=== PATIENT | female | born 1950 | race Caucasian/White ===

== ENCOUNTER 2018-04-05 09:40 | Outpatient (CLI) | payer MEDICARE ==
--- NOTE | 2018-04-06 15:15 | MMO ---
BILATERAL SCREENING MAMMOGRAM: Date: 04/05/18 HISTORY: Screening. COMPARISON: Mammogram from 2017. TECHNIQUE: Bilateral screening CC and MLO mammograms. This patient's mammogram was interpreted with the assistance of computer-aided detection. FINDINGS: No suspicious mass, architectural distortion, or microcalcifications. Scattered fibroglandular densit ies. IMPRESSION: BIRADS 2: Benign Finding(s) Continued annual mammographic screening is recommended. POS: DEBBIE
== END 2018-04-05 09:41 | disposition home or self-care (01) ==
LOC: SCSMAMMO 09:40
PROVIDERS: ATTEND Family Medicine
DX: Z12.31 Encounter for screening mammogram for malignant neoplasm of breast (principal)
CPT/HCPCS: 77067

== ENCOUNTER 2018-05-12 09:49 | Outpatient (CLI) | payer MEDICARE ==
--- NOTE | 2018-05-12 12:32 | CT ---
CT OF THORAX WITHOUT CONTRAST UTILIZING LOW DOSE CT LUNG CANCER SCREENING PROTOCOL: Indication: 67-year-old female with history of 46 years of smoking. Quite 15 years ago. Patient previ ously smoked 1 to 1.5 packs per day. No history of cancer. FINDINGS: There is mild centrilobular emphysema. No suspicious pulmonary nodule is identified. No focal airspac e opacity is noted. There are mild vascular calcifications involving the thoracic aorta. There is mod erate calcification involving the coronary arteries. Visualized upper abdomen reveals no definite acu te abnormality. Gallbladder is surgically absent. No definite acute osseous abnormality is evident. IMPRESSION: 1. Lung rads category 1 - negative. Recommend annual low dose lung cancer screening CT. 2. Mild centrilobular emphysema. Moderate coronary artery and mild thoracic aortic calcifications. Ch olecystectomy. POS: DEBBIE
== END 2018-05-12 09:50 | disposition home or self-care (01) ==
LOC: CT 09:49
PROVIDERS: ATTEND Family Medicine
DX: Z87.891 Personal history of nicotine dependence (principal); J43.2 Centrilobular emphysema; I25.10 Atherosclerotic heart disease of native coronary artery without angina pectoris; I70.0 Atherosclerosis of aorta; Z90.49 Acquired absence of other specified parts of digestive tract
CPT/HCPCS: G0297

== ENCOUNTER 2018-09-15 11:42 | Day surgery (SDC) | payer MEDICARE ==
[2018-09-14 14:57] VITALS: BMI 41.4
[2018-09-15] MEDS ORDERED: Lidocaine 1% PF 5 ML VIAL ONE (13:01)
[2018-09-15] MEDS ORDERED: Sodium Bicarbonate 2.5 MEQ/5 ML VIAL ONE (13:01)
[2018-09-15 14:00] VITALS: BP 157/70; TEMP 98.3
--- NOTE | 2018-09-15 14:46 | ULT ---
THRYOID SONOGRAM: History: Thyroid mass. Abnormal carotid sonogram. FINDINGS: Right thyroid measures up to 2.7 cm. Along the medial margin near the isthmus is an oval heterogeneou s 0.6 mm hypoechoic nodule. Isthmus is 0.2 cm. The left thyroid lobe measures up to 3.6 cm and is pre dominately occupied by well circumscribed very heterogeneous oval slightly hypoechoic mass measuring up to 3.1 x 1.7 x 1.7 mm. Internal nonvascular martin is present. Some vascularity is scattered about t he dominant mass. A tiny cluster of microcalcifications is present near the superior pole. IMPRESSION: Dominant left thyroid lobe mass as detailed above. Sonographic fine needle aspiration has been perfor med. Please see separate report. POS: DEBBIE
--- NOTE | 2018-09-15 15:57 | ULT ---
SONOGRAPHIC GUIDED FNA LEFT THYROID LOBE MASS: HISTORY: Dominant mass left thyroid lobe. FINDINGS: After explaining the procedure and answering all questions, a dominant mass in the left thyroid lobe was visualized. Sterile technique, buffered local anesthesia, sonographic guidance, and a medial yan bill were used to carefully advance a 25-gauge needle into the large left thyroid lobe mass. A tota l f 4 passes were made. Care was taken to obtain a sample in the region of the microcalcification cl uster. Tissue was submitted to pathology for evaluation. Postprocedure imaging shows no evidence of complic ation. The patient tolerated the procedure well and was dismissed in good condition. IMPRESSION: Technically successful sonographic-guided fine needle aspiration left thyroid lobe mass. Pathology i s pending. POS: DEBBIE
== END 2018-09-15 13:45 | disposition home or self-care (01) ==
LOC: ULT 11:42
PROVIDERS: ATTEND Otolaryngology Plastic Surgery within the Head & Neck
PROC: 0GBG3ZX Excision of Left Thyroid Gland Lobe, Percutaneous Approach, Diagnostic (ICD-10-PCS; principal; 2018-09-15)
DX: E04.1 Nontoxic single thyroid nodule (principal); I11.0 Hypertensive heart disease with heart failure; I50.9 Heart failure, unspecified; E03.9 Hypothyroidism, unspecified; M19.90 Unspecified osteoarthritis, unspecified site; E55.9 Vitamin D deficiency, unspecified; F32.9 Major depressive disorder, single episode, unspecified; G47.00 Insomnia, unspecified; Z87.891 Personal history of nicotine dependence; Z79.82 Long term (current) use of aspirin; Z79.84 Long term (current) use of oral hypoglycemic drugs; Z79.899 Other long term (current) drug therapy
CPT/HCPCS: 60100; 76536; 76942; 88173; J2001

== ENCOUNTER 2018-10-05 08:14 | Day surgery (SDC) | payer MEDICARE ==
[2018-10-04 11:05] VITALS: BMI 41.4
[2018-10-05 10:23] LABS: Hemoglobin 13.9 g/dL (12.0-16.0)
[2018-10-05 10:41] LABS: Anion Gap 12 mmol/L (10-20); BUN (Urea Nitrogen) 19 mg/dL (9.8-20.1); Calc. Creatinine Clearance 117 mL/min (70-130); Calcium 9.3 mg/dL (7.8-10.44); Carbon Dioxide 25 mmol/L (23-31); Chloride 106 mmol/L (98-107); Estimated GFR-MDRD 74; Glucose 117 mg/dL (80-115); Potassium 4.2 mmol/L (3.5-5.1); Sodium 139 mmol/L (136-145)
[2018-10-05] MEDS ORDERED: Lidocaine 1% w/Epinephrine 1:100K 20 ML VIAL ONE (11:36)
[2018-10-05] MEDS ORDERED: Fentanyl 100 MCG/2 ML VIAL ONE ×3 (11:46→13:34)
[2018-10-05] MEDS ORDERED: Bacitracin Zinc Ointment 30 gm TUBE ONE (12:53)
[2018-10-05] MEDS ORDERED: PROPOFOL 200 MG/20 ML VIAL ONE (12:57)
[2018-10-05] MEDS ORDERED: Lidocaine 1% PF 5 ML VIAL ONE ×2 (12:57)
[2018-10-05] MEDS ORDERED: Rocuronium Bromide 10 MG/ML (10ML VIAL) ONE (12:57)
[2018-10-05] MEDS ORDERED: PHENYLEPHRINE-NS 100 MCG/ML 10 ML SYRINGE ONE (12:57)
[2018-10-05] MEDS ORDERED: Ondansetron PF 4 MG/2 ML Vial ONE (12:57)
[2018-10-05] MEDS ORDERED: Hydrocodone-Acetamin 15 ML UDCUP ONE (15:43)
[2018-10-05] MEDS ORDERED: Promethazine HCl 25 MG/ML VIAL ONE (17:47)
--- NOTE | 2018-10-06 14:37 | OP ---
DATE OF PROCEDURE: 10/05/2018 PREOPERATIVE DIAGNOSIS: Left thyroid mass. POSTOPERATIVE DIAGNOSIS: Left thyroid mass. PROCEDURE PERFORMED: Left hemithyroidectomy with intraoperative laryngeal nerve monitor. ESTIMATED BLOOD LOSS: 10 mL. COMPLICATIONS: None. ANESTHESIA: GETA. DESCRIPTION OF PROCEDURE: The patient was taken to the operating room and placed on table. General endotracheal anesthesia was obtained by the Anesthesia staff. Tube was secured in the midline of upper lip. Shoulder roll was placed. The patient was prepped for standard surgical procedure. Following this, an intraoperative laryngeal nerve monitor was turned on and remained on throughout the procedure. Following this, an incision was made approximately 2 cm above the sternal notch in a natural skin crease. Incision was carried through skin, subcutaneous tissue, and the platysmal layer. Following this, subsequent platysmal flaps were elevated superiorly to the level of thyroid notch and inferiorly to the sternal notch. Following this, the strap muscles were identified and were in the midline. The thyroid gland was easily identified and a large left thyroid lobe was identified extending medially adjacent to the capsule of this left thyroid lobe. Dissection was carried medially. The middle thyroid vein was suture ligated. The gland was then displaced inferiorly and the superior thyroid vascular pedicle was then identified, isolated, and suture ligated immediately adjacent to the thyroid lobe. The superior parathyroid gland was identified and was preserved. Following this, the recurrent laryngeal nerve was identified and was dissected towards the cricothyroid notch, freeing the thyroid gland from this area. The thyroid artery was suture ligated. Following this, Warren ligaments were identified and were transected with the suture ligation or the bipolar device. The gland was then freed from its attachments to the trachea and the left thyroid lobe along with the isthmus of the thyroid was then suture ligated and removed from the body. They were sent for pathological analysis and they deferred to rule out follicular thyroid cancer. The wound was irrigated and a small drain was placed. The strap muscle layer, platysma layer, and subcutaneous layers were closed using Monocryl stitches. The skin was closed using Dermabond. The patient tolerated the procedure well. The laryngeal nerve was turned off at this point of procedure, and the patient was awakened from anesthesia. Job ID: [id number]
== END 2018-10-05 16:10 | disposition home or self-care (01) ==
LOC: SDC 08:14
PROVIDERS: ATTEND Otolaryngology Plastic Surgery within the Head & Neck
PROC: 0GTJ0ZZ Resection of Thyroid Gland Isthmus, Open Approach (ICD-10-PCS; principal; 2018-10-05)
PROC: 0GTG0ZZ Resection of Left Thyroid Gland Lobe, Open Approach (ICD-10-PCS; 2018-10-05)
DX: E04.1 Nontoxic single thyroid nodule (principal); E03.9 Hypothyroidism, unspecified; I11.0 Hypertensive heart disease with heart failure; I50.9 Heart failure, unspecified; M19.90 Unspecified osteoarthritis, unspecified site; G47.00 Insomnia, unspecified; E55.9 Vitamin D deficiency, unspecified; F32.9 Major depressive disorder, single episode, unspecified; Z87.891 Personal history of nicotine dependence; Z79.82 Long term (current) use of aspirin; Z79.84 Long term (current) use of oral hypoglycemic drugs; Z79.899 Other long term (current) drug therapy
CPT/HCPCS: 36415; 80048; 85014; 85018; 88307; 93005; 93010; J2001; J2405; J2550; J2704; J3010

== ENCOUNTER 2022-02-25 14:16 | Outpatient (CLI) | payer MEDICARE | END 2022-02-25 14:17 | disposition home or self-care (01) | LOC: BICMAMMO 14:16 | PROVIDERS: ATTEND Family Medicine | DX: Z12.31 Encounter for screening mammogram for malignant neoplasm of breast (principal); Z80.3 Family history of malignant neoplasm of breast | CPT/HCPCS: 77063; 77067 ==

== ENCOUNTER 2023-02-23 11:23 | Outpatient (CLI) | payer MEDICARE | END 2023-02-23 11:24 | disposition home or self-care (01) | LOC: SCSMRI 11:23 | PROVIDERS: ATTEND Orthopaedic Surgery | DX: M19.011 Primary osteoarthritis, right shoulder (principal); M25.411 Effusion, right shoulder; M75.111 Incomplete rotator cuff tear or rupture of right shoulder, not specified as traumatic; S46.911A Strain of unspecified muscle, fascia and tendon at shoulder and upper arm level, right arm, initial encounter; M65.811 Other synovitis and tenosynovitis, right shoulder ==

== ENCOUNTER 2023-04-08 05:40 | Observation (INO) | payer MEDICARE ==
[2023-04-05 12:20] VITALS: BMI 45.7
[2023-04-08] MEDS ORDERED: Tranexamic Acid 1,000 MG/10 ML VIAL ONE (06:31)
[2023-04-08] MEDS ORDERED: CEFAZOLIN 2 GM VIAL ONE (06:31)
[2023-04-08] MEDS ORDERED: Sodium Chloride 0.9% 200 ML ONE (06:31)
[2023-04-08] MEDS ORDERED: Vancomycin (BATCH) 1.5 GRAM/300 ML BAG ONE (06:31)
[2023-04-08] MEDS ORDERED: Midazolam HCl 2 mg/2 ml Vial ONE (06:45)
[2023-04-08] MEDS ORDERED: fentaNYL 50 mcg/mL 1 mL Vial ONE (06:45)
[2023-04-08] MEDS ORDERED: Lidocaine 1% (PF) 30 ML VIAL ONE (06:45)
[2023-04-08] MEDS ORDERED: Acetaminophen 500 MG TAB ONE (06:49)
[2023-04-08] MEDS ORDERED: Phenylephrine 10 MG/ML VIAL ONE (06:57)
[2023-04-08] MEDS ORDERED: fentaNYL PF 100 MCG/2 ML SYRINGE ONE (06:57)
[2023-04-08] MEDS ORDERED: Dexamethasone 20 MG/5 ML VIAL ONE (07:01)
[2023-04-08] MEDS ORDERED: Ketorolac Tromethamine 30 MG/ML VIAL ONE (07:01)
[2023-04-08] MEDS ORDERED: Lidocaine 1% PF 5 ML VIAL ONE (07:01)
[2023-04-08] MEDS ORDERED: ePHEDrine Sulfate 50 MG/10 ML VIAL ONE (07:01)
[2023-04-08] MEDS ORDERED: Glycopyrrolate 0.2 MG/ML 5 ML SYRINGE ONE (07:01)
[2023-04-08] MEDS ORDERED: Ondansetron PF 4 MG/2 ML Vial ONE (07:01)
[2023-04-08] MEDS ORDERED: PROPOFOL 200 MG/20 ML VIAL ONE (07:01)
[2023-04-08] MEDS ORDERED: NEOSTIGMINE 3 MG/3 ML SYR 3 MG/3 ML SYRINGE ONE (07:01)
[2023-04-08] MEDS ORDERED: Rocuronium Bromide 10 MG/ML (10ML VIAL) ONE (07:01)
[2023-04-08] MEDS ORDERED: fentaNYL 50 mcg/mL 1 mL Vial SLOW IVP PRN (08:34)
[2023-04-08] MEDS ORDERED: Ropivacaine 0.2% 550 ML 550 ML NERVE BLCK SCH (08:45)
[2023-04-08] MEDS ORDERED: HYDROcodone/Acetaminophen 10/325 mg Tablet PO PRN ×2 (08:45)
[2023-04-08] MEDS ORDERED: traMADol HCl 50 MG TAB PO PRN ×2 (08:45)
[2023-04-08] MEDS ORDERED: Promethazine HCl 25 MG/ML VIAL IM PRN (08:45)
[2023-04-08] MEDS ORDERED: Zolpidem Tartrate 5 MG TAB PO PRN (08:45)
[2023-04-08] MEDS ORDERED: Ondansetron PF 4 MG/2 ML Vial IVP PRN (08:45)
[2023-04-08] MEDS ORDERED: Ropivacaine 0.5% HCl/PF (150 MG/30 ML VIAL) ONE (08:46)
[2023-04-08] MEDS ORDERED: Ropivacaine 0.2% HCl/PF 20 ML ONE (08:46)
[2023-04-08] MEDS ORDERED: SUGAMMADEX SODIUM 200 MG/2 ML VIAL ONE (09:40)
[2023-04-08] MEDS ORDERED: Acetaminophen 325 MG TAB PO PRN (10:17)
[2023-04-08] MEDS ORDERED: Bisacodyl 10 MG SUPP PR PRN (10:17)
[2023-04-08] MEDS ORDERED: Milk Of Magnesia 30 ML UDCUP PO PRN (10:17)
[2023-04-08] MEDS ORDERED: Methocarbamol 1 GM/10 ML VIAL SLOW IVP PRN (10:17)
[2023-04-08] MEDS ORDERED: Methocarbamol 500 MG TAB PO PRN (10:17)
[2023-04-08] MEDS ORDERED: diphenhydrAMINE 50 MG CAP PO PRN (10:17)
[2023-04-08] MEDS: CEFAZOLIN 2 GM in Sodium Chloride 0.9% 100 ML IVPB SCH ×2 (16:03→23:13)
[2023-04-08] MEDS: Ketorolac Tromethamine 30 MG/ML VIAL IVP SCH ×3 (16:05→23:13)
[2023-04-08] MEDS ORDERED: Clotrimazole 1 % Cream 30 GM TUBE TOP PRN (18:43)
[2023-04-08] MEDS: Sodium Chloride 0.9% 1,000 ML IV SCH (18:46)
[2023-04-08] MEDS ORDERED: Atorvastatin Calcium 20 MG TAB PO SCH (21:00)
[2023-04-08] MEDS ORDERED: Loratadine 10 MG TAB PO SCH (21:00)
[2023-04-08] MEDS ORDERED: Losartan 25 MG TAB PO SCH (21:00)
[2023-04-08] MEDS ORDERED: Famotidine 20 MG TAB PO SCH (21:00)
[2023-04-09] MEDS: Sodium Chloride 0.9% 1,000 ML IV SCH (01:30)
[2023-04-09] MEDS ORDERED: Levothyroxine Sodium 100 MCG TAB PO SCH (06:00)
[2023-04-09] MEDS: Ketorolac Tromethamine 30 MG/ML VIAL IVP SCH ×3 (06:14→10:59)
[2023-04-09] MEDS ORDERED: glipiZIDE 5 MG TAB PO SCH (07:30)
[2023-04-09] MEDS ORDERED: Calcium Carbonate 500 MG TAB PO SCH (08:00)
[2023-04-09 08:58] VITALS: BP 134/67; TEMP 98.2
[2023-04-09] MEDS ORDERED: Multivit, Therapeutic 1 TAB PO SCH (09:00)
[2023-04-09] MEDS ORDERED: Vit A,C & E/Lutein/Minerals Tablet PO SCH (09:00)
[2023-04-09] MEDS ORDERED: Aspirin 81 mg Enteric Coated Tablet PO SCH (09:00)
[2023-04-09] MEDS ORDERED: Ascorbic Acid 500 mg Chewable Tablet PO SCH (09:00)
[2023-04-09] MEDS ORDERED: MAGNESIUM OXIDE FS SCH (09:00)
[2023-04-09] MEDS ORDERED: TURMERIC FS SCH (09:00)
[2023-04-09] MEDS ORDERED: VITAMIN K2 PO SCH (09:00)
[2023-04-09] MEDS ORDERED: CO Q-10 CAPSULE 100 MG PO SCH (09:00)
[2023-04-09] MEDS ORDERED: Ezetimibe 10 MG TAB PO SCH (09:00)
[2023-04-09] MEDS ORDERED: Bupropion 150 MG SR TAB PO SCH (09:00)
[2023-04-09] MEDS ORDERED: Cholecalciferol 1,000 UNITS (25 MCG) TAB PO SCH (09:00)
[2023-04-09] MEDS ORDERED: Escitalopram Oxalate 20 mg Tablet PO SCH (09:00)
[2023-04-09] MEDS ORDERED: CHOLECALCIFEROL FS SCH (09:00)
[2023-04-09] MEDS ORDERED: GARLIC PO SCH (09:00)
[2023-04-09] MEDS ORDERED: Fish Oil 1,000 MG CAP PO SCH (09:00)
== END 2023-04-09 12:10 | disposition home or self-care (01) ==
LOC: SDC 05:40 → SJJU 15:23
PROVIDERS: ADMIT Orthopaedic Surgery; ATTEND Orthopaedic Surgery
PROC: 0RRJ00Z Replacement of Right Shoulder Joint with Reverse Ball and Socket Synthetic Substitute, Open Approach (ICD-10-PCS; principal; 2023-04-08)
PROC: 0LS30ZZ Reposition Right Upper Arm Tendon, Open Approach (ICD-10-PCS; 2023-04-08)
DX: M19.011 Primary osteoarthritis, right shoulder (principal); M75.121 Complete rotator cuff tear or rupture of right shoulder, not specified as traumatic; M75.21 Bicipital tendinitis, right shoulder; I11.0 Hypertensive heart disease with heart failure; I50.9 Heart failure, unspecified; E03.9 Hypothyroidism, unspecified; Z87.891 Personal history of nicotine dependence; Z79.890 Hormone replacement therapy; Z79.899 Other long term (current) drug therapy; Z79.82 Long term (current) use of aspirin; Z90.49 Acquired absence of other specified parts of digestive tract; Z90.89 Acquired absence of other organs; Z88.8 Allergy status to other drugs, medicaments and biological substances
CPT/HCPCS: 23430; 23472; 97110; 97116 ×2; 97535; A4306; C1713 ×7; C1776 ×3; J3010; J3370; J1100; J1885; J2001; J2250; J2370; J2405; J2704; J2795; J3490; J7050